=== PATIENT | female | born 1965 | race Caucasian/White ===

== ENCOUNTER 2017-09-12 07:57 | Observation (INO) | payer OTHER ==
[~2017-09-12] VITALS: Ht 157.5 cm; Wt 68.0 kg
[2017-09-12] MEDS ORDERED: LOSA50 PO (08:39)
[2017-09-12] MEDS ORDERED: GUAI600T33 (08:39)
[2017-09-12] MEDS ORDERED: CITA10S PO (08:39)
[2017-09-12] MEDS ORDERED: ESTR2 (08:40)
[2017-09-12 09:13] LABS: BASOPHILS ABSOLUTE AUTO 0.05 K/mm3 (0.00-0.23); BASOPHILS PERCENT AUTO 1 % (0-2); EOSINOPHILS ABSOLUTE AUTO 0.15 K/mm3 (0.00-0.68); EOSINOPHILS PERCENT AUTO 2 % (0-6); Hematocrit 40.9 % (33.0-51.0); Hemoglobin 13.9 g/dL (11.5-16.0); IMMATURE GRAN ABSOLUTE AUTO 0.01 K/mm3 (0.00-0.10); IMMATURE GRAN PERCENT AUTO 0 % (0-1); LYMPHOCYTES ABSOLUTE AUTO 2.62 K/mm3 (0.84-5.20); LYMPHOCYTES PERCENT AUTO 38 % (21-46); MONOCYTES PERCENT AUTO 7 % (4-13); Mean Corpuscular HGB 32.3 pg (26.0-34.0); Mean Corpuscular Volume 95 fL (80-100); Mean Platelet Volume 9.2 fL (9.1-12.4); NEUTROPHILS ABSOLUTE AUTO 3.56 K/mm3 (1.96-9.15); NEUTROPHILS PERCENT AUTO 52 % (41-73); Platelet Count 288 K/mm3 (150-400); RDW Coefficient Variation 12.6 % (11.7-14.2); RDW Standard Deviation 44.3 fL (35.1-46.3); White Blood Cell Count 6.89 K/mm3 (4.00-11.30)
[2017-09-12 09:27] LABS: Alanine Aminotransfer (ALT/SGP 30 U/L (12-78); Albumin, Blood 3.7 g/dL (3.4-5.0); Albumin/Globulin Ratio 0.9 (0.8-1.8); Alk Phos 90 U/L (50-136); Anion Gap 6 mmol/L (6-16); Aspartate Aminotrans (AST/SGOT 17 U/L (12-37); Bilirubin, Total 0.5 mg/dL (0.1-1.0); Blood Urea Nitrogen 12 mg/dL (8-24); Bun/Creatinine Ratio 18.2 (12.0-20.0); CO2, Blood 25 mmol/L (21-32); Calcium, Blood 8.2 mg/dL (8.5-10.1); Chloride, Blood 109 mmol/L (98-108); Creatinine, Blood 0.66 mg/dL (0.40-1.00); Globulin, Blood 3.9 g/dL (2.2-4.0); Glomerular Filtration Rate >60 (60-); Glucose, Blood 101 mg/dL (70-99); Potassium, Blood 3.4 mmol/L (3.5-5.5); Sodium, Blood 140 mmol/L (136-145); Total Protein, Blood 7.6 g/dL (6.4-8.2); Troponin I <0.015 ng/mL (0.000-0.040)
[2017-09-12] MEDS ORDERED: Multivitamin1 EAC1 PO (13:03)
[2017-09-12] MEDS ORDERED: Tenex1 MG PO (13:04)
[2017-09-12] MEDS ORDERED: CLARITIN10 MG PO (13:05)
[2017-09-12] MEDS ORDERED: ASCO500 PO (13:06)
[2017-09-12] MEDS ORDERED: ESTROVEN ENERG1 EACH PO (13:09)
[2017-09-13 03:06] LABS: BASOPHILS ABSOLUTE AUTO 0.05 K/mm3 (0.00-0.23); BASOPHILS PERCENT AUTO 1 % (0-2); EOSINOPHILS ABSOLUTE AUTO 0.13 K/mm3 (0.00-0.68); EOSINOPHILS PERCENT AUTO 2 % (0-6); Hematocrit 41.8 % (33.0-51.0); Hemoglobin 14.1 g/dL (11.5-16.0); IMMATURE GRAN ABSOLUTE AUTO 0.01 K/mm3 (0.00-0.10); IMMATURE GRAN PERCENT AUTO 0 % (0-1); LYMPHOCYTES ABSOLUTE AUTO 2.89 K/mm3 (0.84-5.20); LYMPHOCYTES PERCENT AUTO 46 % (21-46); MONOCYTES PERCENT AUTO 8 % (4-13); Mean Corpuscular HGB 32.3 pg (26.0-34.0); Mean Corpuscular HGB Conc 33.7 g/dL (31.5-36.5); Mean Corpuscular Volume 96 fL (80-100); Mean Platelet Volume 8.8 fL (9.1-12.4); NEUTROPHILS ABSOLUTE AUTO 2.73 K/mm3 (1.96-9.15); NEUTROPHILS PERCENT AUTO 43 % (41-73); Platelet Count 287 K/mm3 (150-400); RDW Coefficient Variation 12.5 % (11.7-14.2); RDW Standard Deviation 44.5 fL (35.1-46.3); Red Blood Cell Count 4.36 M/mm3 (3.80-5.20); White Blood Cell Count 6.31 K/mm3 (4.00-11.30)
[2017-09-13 03:28] LABS: Alanine Aminotransfer (ALT/SGP 25 U/L (12-78); Albumin, Blood 3.5 g/dL (3.4-5.0); Albumin/Globulin Ratio 0.9 (0.8-1.8); Alk Phos 88 U/L (50-136); Anion Gap 7 mmol/L (6-16); Aspartate Aminotrans (AST/SGOT 14 U/L (12-37); Bilirubin, Total 0.4 mg/dL (0.1-1.0); Blood Urea Nitrogen 14 mg/dL (8-24); Bun/Creatinine Ratio 19.8 (12.0-20.0); CHOL/HDL RATIO 5.6; CO2, Blood 27 mmol/L (21-32); Calcium, Blood 8.2 mg/dL (8.5-10.1); Chloride, Blood 107 mmol/L (98-108); Cholesterol 256 mg/dL (50-200); Creatinine, Blood 0.71 mg/dL (0.40-1.00); Globulin, Blood 3.9 g/dL (2.2-4.0); Glomerular Filtration Rate >60 (60-); Glucose, Blood 98 mg/dL (70-99); HDL Cholesterol 46 mg/dL (>39); LDL/HDL RATIO 3.7; Low Density Lipoprotein Chol 171 mg/dL (0-110); Potassium, Blood 3.4 mmol/L (3.5-5.5); Sodium, Blood 141 mmol/L (136-145); Total Protein, Blood 7.4 g/dL (6.4-8.2); Triglycerides 195 mg/dL (30-160); Very Low Density Lipoprot Chol 39 mg/dL (6-32)
[2017-09-14] MEDS ORDERED: Estradiol0.5 MG PO (12:11)
[2017-09-14] MEDS ORDERED: METO25ER PO (12:13)
[2017-09-14] MEDS ORDERED: SPIR25 PO (13:02)
[2017-09-14 17:48] LABS: RNP/SM Ab IgG <0.2 AI (<1.0)
[2017-09-15 06:27] LABS: C3 163 mg/dL
[2018-01-14] MEDS ORDERED: CLARITIN10 MG PO (13:46)
[2018-01-14] MEDS ORDERED: LOSARTAN-HCTZ1 EACH PO (13:47)
[2018-01-14] MEDS ORDERED: Voltaren100 GM TOP (13:48)
== END 2017-09-14 13:36 | disposition home or self-care (01) ==
LOC: ER 07:57 → MEDS 07:58
PROVIDERS: Internal Medicine; Physician Assistant
DX: R07.9 Chest pain, unspecified (principal); I10 Essential (primary) hypertension; E78.5 Hyperlipidemia, unspecified; G43.909 Migraine, unspecified, not intractable, without status migrainosus; M79.7 Fibromyalgia; I71.2 Thoracic aortic aneurysm, without rupture; E87.6 Hypokalemia; Z90.710 Acquired absence of both cervix and uterus; Z98.890 Other specified postprocedural states; Z79.899 Other long term (current) drug therapy; Z82.49 Family history of ischemic heart disease and other diseases of the circulatory system; Z98.51 Tubal ligation status
CPT/HCPCS: 36415; 71046; 78452; 80053; 80061; 83880; 84443; 84484; 85025; 85651; 86038; 86160; 86225; 86235; 93005; 93010; 93017; 93306; 94762; 96372; 96374; 96376; 99285; A9500; G0378; J1650; J3010

== ENCOUNTER 2018-01-15 07:33 | Day surgery (SDC) | payer OTHER ==
[~2018-01-15] VITALS: Ht 157.5 cm; Wt 73.0 kg
[~2018-01-15 07:33] MED LIST: ASCO500 PO; CITA10S PO; CLARITIN10 MG PO; ESTR2; ESTROVEN ENERG1 EACH PO; Estradiol0.5 MG PO; GUAI600T33; LOSA50 PO; LOSARTAN-HCTZ1 EACH PO; METO25ER PO; Multivitamin1 EAC1 PO; SPIR25 PO; Tenex1 MG PO; Voltaren100 GM TOP
== END 2018-01-15 13:30 | disposition home or self-care (01) ==
LOC: MHTC 07:33
DX: I71.2 Thoracic aortic aneurysm, without rupture (principal); I77.810 Thoracic aortic ectasia; I10 Essential (primary) hypertension; Z79.899 Other long term (current) drug therapy; Z88.8 Allergy status to other drugs, medicaments and biological substances; E78.5 Hyperlipidemia, unspecified; M79.7 Fibromyalgia; Z82.49 Family history of ischemic heart disease and other diseases of the circulatory system; I73.00 Raynaud's syndrome without gangrene
CPT/HCPCS: 93454; 99152; C1769; C1894; J1644; J2250; J3010; J7030; Q9967

== ENCOUNTER 2020-04-28 08:15 | Day surgery (SDC) | payer OTHER ==
[~2020-04-28] VITALS: Ht 157.5 cm; Wt 76.2 kg
[~2020-04-28 08:15] MED LIST changes: +CITA20 PO; +CYCL10 PO; +MULTIVITAMINS1 EAC3 PO; +Mirapex1 MG; +Norco 5-325 Ta1 EACH PO; +POTA10T PO; +PREG75 PO; +XYZAL5 MG PO
--- NOTE | 2020-04-28 09:13 | NUR ---
04/28/20 0912 Shwetha Adkins CHARTED BY VIVEK LEONE.
[2020-04-28] MEDS ORDERED: PARO10 (09:22)
--- NOTE | 2020-04-28 11:53 | NUR ---
04/28/20 Jordana Fay PT RESTING, PT DENIES ANY PAIN OR NAUSEA. NO BLEEDING. PT STATES SHE IS READY TO GO HOME. VS WNL. FAMILY AT BEDSIDE.
== END 2020-04-28 11:54 | disposition home or self-care (01) ==
LOC: ORSCSDS 08:15
PROVIDERS: Otolaryngology
PROC: 09BM8ZX Excision of Nasal Septum, Via Natural or Artificial Opening Endoscopic, Diagnostic (ICD-10-PCS; principal; 2020-04-28 09:30)
DX: D14.0 Benign neoplasm of middle ear, nasal cavity and accessory sinuses (principal); I10 Essential (primary) hypertension; J45.909 Unspecified asthma, uncomplicated; G47.33 Obstructive sleep apnea (adult) (pediatric); E78.5 Hyperlipidemia, unspecified; Z79.899 Other long term (current) drug therapy
CPT/HCPCS: 88305; J0171; J0330; J1100; J2250; J2405; J2704; J3010; J7120

== ENCOUNTER → 2020-11-16 | Outpatient (CLI) | payer OTHER ==
[~2020-11-16] MED LIST changes: +PARO10
[2020-11-16 14:11] LABS: Source, Urine Clean Catch
[2020-11-16 15:40] LABS: Appearance, Urine Clear (Clear); Bilirubin, Urine Neg (Neg); Blood, Urine Neg (Neg); Color, Urine Yellow (P-Yellow); Glucose Qualitative, Urine Neg (Neg); Ketones, Urine Neg (Neg); Leukocyte Esterase, Urine Neg (Neg); Nitrite, Urine Neg (Neg); Protein, Urine Neg (Neg); Specific Gravity, Urine 1.005 (1.003-1.022); Urobilinogen, Urine NORM (Normal)
== END | disposition home or self-care (01) ==
LOC: OLS 14:09 → LAB SHORT 14:09
PROVIDERS: Family Medicine
DX: R35.0 Frequency of micturition (principal)
CPT/HCPCS: 81003

== ENCOUNTER 2021-10-28 07:53 | Day surgery (SDC) | payer OTHER ==
[~2021-10-28] VITALS: Ht 157.5 cm; Wt 75.8 kg
[2021-10-28] MEDS ORDERED: BUSP5 PO (08:35)
[2021-10-28] MEDS ORDERED: CELE100 PO (08:35)
== END 2021-10-28 10:58 | disposition home or self-care (01) ==
LOC: ORSCSDS 07:53
PROVIDERS: Podiatrist Foot & Ankle Surgery
PROC: 0JNR0ZZ Release Left Foot Subcutaneous Tissue and Fascia, Open Approach (ICD-10-PCS; principal; 2021-10-28 09:15)
DX: M72.2 Plantar fascial fibromatosis (principal); I10 Essential (primary) hypertension; J45.909 Unspecified asthma, uncomplicated; G47.33 Obstructive sleep apnea (adult) (pediatric); E11.9 Type 2 diabetes mellitus without complications; E66.9 Obesity, unspecified; Z68.30 Body mass index [BMI] 30.0-30.9, adult; Z87.891 Personal history of nicotine dependence; Z79.899 Other long term (current) drug therapy
CPT/HCPCS: A9270; J0171; J0690; J1100; J2250; J2405; J2704; J3010; J7120